=== PATIENT | female | born 1955 | race Caucasian/White ===

== ENCOUNTER 2016-12-24 22:05 | Emergency (ER) | payer SELFPAY ==
[~2016-12-24] VITALS: Ht 160 cm; Wt 110.0 kg
[2016-12-24 22:11] VITALS: BP 149/83; PULSE 64; RESP 20; TEMP 98.2; O2SAT 97
[2016-12-24] MEDS ORDERED: CEPHALEXIN MONOHYDRATE 500 MG CAP PO ONE (22:30)
[2016-12-24] MEDS ORDERED: ACETAMINOPHEN/HYDROcodone 325 MG/5 MG TAB PO ONE (22:30)
[2016-12-24] MEDS ORDERED: FURO1TAB60 PO (22:32)
[2016-12-24] MEDS ORDERED: METF1000 PO (22:32)
[2016-12-24] MEDS ORDERED: POTA-163 PO (22:32)
[2016-12-24] MEDS ORDERED: HUMU70IN SQ (22:32)
[2016-12-24] MEDS ORDERED: PRIL20CA9 PO (22:32)
[2016-12-24] MEDS ORDERED: PROZ40CA PO (22:32)
[2016-12-24] MEDS ORDERED: GABA300C5 PO (22:32)
[2016-12-24] MEDS ORDERED: METO25TA3 PO (22:32)
[2016-12-24] MEDS ORDERED: CEPH-460 PO (22:47)
[2016-12-24] MEDS ORDERED: HYDR-3533 PO (22:47)
--- NOTE | 2016-12-24 22:47 | PD ---
HPI Chief Complaint: Skin Problem Time Seen by Provider: 22:29 Travel History International Travel<30 days: No Contact w/Intl Traveler<30days: No Traveled to known affect area: No History of Present Illness HPI This 61-year-old female is complaining of pain in her left elbow. She says she was bitten by an insect 2 days ago. The areas become swollen and painful. Not aware of fever. She does have a history of diabetes PFSH Past Medical History Asthma: Yes Depression: Yes Cardiovascular Problems: Yes Coronary Artery Disease: Yes Diabetes: Yes Patient Takes Glucophage: Yes (1800 12-24-16) Diminished Hearing: No Gastrointestinal Disorders: Yes (hx stomache ulcer) Hypertension: Yes Respiratory: Yes Integumentary: Yes Immunizations Current: Yes Tetanus Vaccination: < 5 Years Influenza Vaccination: No ?: Not Tubal Ligation: Yes Past Surgical History Cholecystectomy: Yes Other Surgery: Yes (ulcer) Social History Alcohol Use: No Tobacco Use: No Substance Use: No Allergies-Medications (Allergen,Severity, Reaction): Coded Allergies: No Known Allergies (Unverified , 12/24/16) Reported Meds & Prescriptions Reported Meds & Active Scripts Active Reported Humulin 70-30 Inj (Insulin NPH Isophane-Reg (Human) 70-30 Inj) 1,000 Unit/10 Ml Vial 20 Unit SQ BID Gabapentin 300 Mg Cap 300 Mg PO TID Prilosec (Omeprazole) 20 Mg Cap 20 Mg PO DAILY Prozac (Fluoxetine HCl) 40 Mg Cap 40 Mg PO DAILY Potassium Chloride ER (Potassium Chloride) 20 Meq Tab 20 Meq PO DAILY Lasix (Furosemide) 40 Mg Tab 40 Mg PO BID Metoprolol Tartrate 25 Mg Tab 25 Mg PO BID Metformin (Metformin HCl) 1,000 Mg Tab 1,000 Mg PO BIDPC With meals Review of Systems General / Constitutional: No: Fever, Chills Eyes: No: Diploplia, Blurred Vision HENT: No: Headaches Cardiovascular: No: Chest Pain or Discomfort Respiratory: No: Cough, Shortness of Breath Gastrointestinal: No: Nausea, Vomiting Genitourinary: No: Frequency Musculoskeletal: Positive: Pain, No: Myalgias Skin: Positive Rash, Positive Lumps Neurologic: No: Weakness, Dizziness Physical Exam Narrative GENERAL: Female SKIN: Focused skin assessment warm/dry. HEAD: Atraumatic. Normocephalic. EYES: Pupils equal and round. No scleral icterus. No injection or drainage. ENT: No nasal bleeding or discharge. Mucous membranes pink and moist. NECK: Trachea midline. No JVD. CARDIOVASCULAR: Regular rate and rhythm. No murmur appreciated. RESPIRATORY: No accessory muscle use. Clear to auscultation. Breath sounds equal bilaterally. GASTROINTESTINAL: Abdomen soft, non-tender, nondistended. Hepatic and splenic margins not palpable. MUSCULOSKELETAL: No obvious deformities. No clubbing. No cyanosis. No edema. The extensor surface of the left elbow there is an area of slight swelling and erythema of about 1 x 1 cm. There is full flexion and extension of the elbow as well as pronation and supination. There is a central pustular area NEUROLOGICAL: Awake and alert. No obvious cranial nerve deficits. Motor grossly within normal limits. Normal speech. PSYCHIATRIC: Appropriate mood and affect; insight and judgment normal. Data Data Last Documented VS Vital Signs Date Time Temp Pulse Resp B/P Pulse Ox O2 Delivery O2 Flow Rate FiO2 12/24/16 22:23 12/24/16 22:11 98.2 64 20 97 Orders Cephalexin (Keflex) (12/24/16 22:30) Acetamin-Hydrocod 325-5 Mg ([place] 5-325 (12/24/16 22:30) MDM Medical Decision Making Medical Screen Exam Complete: Yes Emergency Medical Condition: Yes Medical Record Reviewed: Yes Differential Diagnosis Differential includes cellulitis, abscess, insect bite Narrative Course Appears to be cellulitis. SHe'll be treated with Keflex and Lortab for pain Procedures Procedure Narrative Is after verbal consent was obtained the area was anesthetized with 1% lidocaine the central pustular area was removed with a scalpel but there was really no drainage of pus beyond that. He will be placed on Keflex. Diagnosis Primary Impression: Cellulitis of left elbow Scripts Hydrocodone-Acetaminophen (Lortab)5-325 Mg Tab1 Tab PO Q4H PRN (PAIN) #20 TAB Ref 0 Prov:Kory Donnelly MD 12/24/16 Cephalexin (Keflex)500 Mg [id number] Mg PO Q6H #28 CAP Ref 0 Prov:Kory Donnelly MD 12/24/16 Disposition: 01 DISCHARGE HOME Condition: Stable Kory Donnelly MD Dec 24, 2016 22:47
== END 2016-12-24 23:15 | disposition home or self-care (01) ==
LOC: PHEFT 22:05
DX: L03.114 Cellulitis of left upper limb (principal); E11.9 Type 2 diabetes mellitus without complications; I10 Essential (primary) hypertension; Z79.4 Long term (current) use of insulin; Z87.09 Personal history of other diseases of the respiratory system; Z86.59 Personal history of other mental and behavioral disorders; Z86.79 Personal history of other diseases of the circulatory system; Z87.19 Personal history of other diseases of the digestive system; Z87.2 Personal history of diseases of the skin and subcutaneous tissue; W57.XXXA Bitten or stung by nonvenomous insect and other nonvenomous arthropods, initial encounter
CPT/HCPCS: 99282